=== PATIENT | male | born 1955 | race Caucasian/White ===

== ENCOUNTER 2017-06-22 15:53 | Inpatient (IN) | payer OTHER ==
[~2017-06-22] VITALS: Ht 175.3 cm; Wt 89.4 kg
[~2017-06-22 15:53] MED LIST: GLEEVEC400 M1; PERCOCET 325 MG1 TA2 PO
[2017-06-22 17:59] LABS: ABSOLUTE BASOPHIL COUNT 0 /CUMM (0.0-0.2); ABSOLUTE EOSINOPHIL COUNT 0.1 /CUMM (0.0-0.7); ABSOLUTE GRANULOCYTE CT 11.5 /CUMM (1.4-6.5); ABSOLUTE MONOCYTE COUNT 0.9 /CUMM (0.10-0.60); BASOPHIL % 0.2 % (0.0-2.0); EOSINOPHIL % 0.9 % (0-5); GRANULOCYTE % 84.9 % (42.2-75.2); HEMATOCRIT 41.6 % (42-52); MEAN CORPUSCULAR HGB 32.5 PG (27.0-31.0); MEAN CORPUSCULAR HGB CONC 33.5 G/DL (33.0-37.0); MEAN CORPUSCULAR VOLUME 96.9 FL (80.0-94.0); MEAN PLATELET VOLUME 8.1 FL (7.4-10.4); PLATELET COUNT 229 /CUMM (130-400); RBC DISTRIBUTION WIDTH 13.8 % (11.5-14.5); RED BLOOD CELL CT 4.29 /CUMM (4.70-6.10); WHITE BLOOD CELL COUNT 13.6 /CUMM (4.8-10.8)
--- NOTE | 2017-06-22 18:06 | ED GENERAL ADULT ---
History of Present Illness General Chief Complaint: General Adult Stated Complaint: SIB FOR FEVER OF 101.4 Source: patient Exam Limitations: no limitations Vital Signs & Intake/Output Vital Signs & Intake/Output Vital Signs Date Time Temp Pulse Resp B/P B/P Pulse O2 O2 Flow FiO2 Mean Ox Delivery Rate 06/224 101.2 90 18 154/90 97 Room Air 06/22 1852 97 Room Air 06/22 1558 100.9 90 20 180/90 98 Room Air Allergies Coded Allergies: MDX - PCN (penicillin) (PCN (PENICILLIN)) (Severe, HIVES 08/05/13) Reconcile Medications Imatinib Mesylate (Gleevec) 400 MG TABLET 1 TAB PO DAILY GIST (Reported) OXYCODONE HCL/ACETAMINOPHEN (Percocet 5-325 MG Tablet) 325 MG/5 MG TAB 1 TAB PO Q4-6 PRN PRN PAIN Triage Note: PT TO ED FOR FEVER OF 101.4. PT IS S/P BIOPSY OF LEFT SHOULDER ON 06/18. PT DEVELOPED FEVERS, CHILLS, TENDERNESS TO AREA ON TUESDAY 06/20. WAS STARTED ON ABX TODAY, TOOK FIRST DOSE 45 MINS AGO. TEMP 100.9 IN TRIAGE. C/O PAIN/TENDERNESS TO THE AREA ON LEFT SHOULDER. PT REQUESTING NO NARCOTICS. Triage Nurses Notes Reviewed? yes HPI: Patient presents for evaluation of a fever and a possible surgical wound infection. Patient states that he went to see his accounts receivable accountant with a concerning skin lesion. 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 Patient then went to Dr. Johnson who excised at the lesion on of last week. 48 hours after patient began experiencing fever and chills and worsening pain in the area of the surgical site. Patient saw Dr. Johnson earlier today and was prescribed an antibiotic after a culture was taken. He subsequently had a fever of 101.4 rectally each prompted his physicians recommended emergency Department evaluation. (Irais SIDDIQUI,Gregory Jauregui) Past History Travel History Traveled to [place] past 21 day No Medical History Any Pertinent Medical History? see below for history Cardiovascular: hyperlipidemia Cancer(s): colon/rectal cancer History of MRSA: No History of VRE: No History of CDIFF: No Surgical History Surgical History: see HPI Psychosocial History Who do you live with Spouse Services at Home None What is your primary language Azeri Tobacco Use: Quit >30 days ago Family History Hx Contributory? No (Irais SIDDIQUI,Gregory Jauregui) Review of Systems Review of Systems Constitutional: Reports: see HPI. EENTM: Reports: no symptoms. Respiratory: Reports: no symptoms. Cardiovascular: Reports: no symptoms. GI: Reports: no symptoms. Genitourinary: Reports: no symptoms. Musculoskeletal: Reports: no symptoms. Skin: Reports: see HPI. Neurological/Psychological: Reports: no symptoms. Hematologic/Endocrine: Reports: no symptoms. Immunologic/Allergic: Reports: no symptoms. All Other Systems: Reviewed and Negative (Irais SIDDIQUI,Gregory Jauregui) Physical Exam Physical Exam General Appearance: see below Comments: Gen.: Well-nourished, well-developed, no acute respiratory distress. Head: Normocephalic, atraumatic. Eyes: Normal inspection bilaterally Ears: Normal inspection bilaterally Nose: Normal inspection Throat/mouth : Moist mucosa Neck: Supple, full range of motion, no goiter Heart: Regular rate and rhythm Lungs: Quiet respirations Back: Normal range of motion Extremities: Left shoulder: Sutured surgical wound with erythema warmth and soft tissue swelling Neurologic: Cranial nerves grossly intact, speech is clear Skin: warm and dry Psychiatric: Calm, cooperative, no apparent delusions or hallucinations Core Measures ACS in differential dx? No CVA/TIA Diagnosis: No Sepsis Present: No Sepsis Focused Exam Completed? No (Irais SIDDIQUI,Gregory Jauregui) Progress Differential Diagnoses I considered the following diagnoses in my evaluation of the patient: Surgical wound infection, cellulitis, abscess Plan of Care: Orders Procedure Date/time Status Heart Healthy Diet 06/23 B Active ED Holding Orders 06/22 2052 Active Vital Signs 06/22 2052 Active Code Status 06/22 2052 Active BLOOD CULTURE 06/23 1731 Active LACTIC ACID 06/23 1731 Complete WESTERGREN SED RATE 06/23 1731 Complete C-REACTIVE PROTEIN 06/23 1731 Complete COMPREHENSIVE METABOLIC PANEL 06/23 1731 Complete CBC WITHOUT DIFFERENTIAL 06/23 1731 Complete Laboratory Tests 06/22/172031: Lactic Acid Cancelled 06/22/171736: Anion Gap 11, Estimated GFR > 60, BUN/Creatinine Ratio 22.5, Glucose 103 H, Lactic Acid 0.8, Calcium 9.4, Total Bilirubin 1.0, AST 28, ALT 43, Alkaline Phosphatase 76, C-Reactive Prot, Quant 7.2 H, Total Protein 7.5, Albumin 4.8, Globulin 2.7, Albumin/Globulin Ratio 1.8, CBC w Diff MAN DIFF ORDERED, RBC 4.29 L, MCV 96.9 H, MCH 32.5 H, MCHC 33.5, RDW 13.8, MPV 8.1, Gran % 84.9 H, Lymphocytes % 7.3 L, Monocytes % 6.7, Eosinophils % 0.9, Basophils % 0.2, Absolute Granulocytes 11.5 H, Segmented Neutrophils 79 H, Band Neutrophils 4, Absolute Lymphocytes 1.0 L, Lymphocytes 11 L, Monocytes 4, Absolute Monocytes 0.9 H, Eosinophils 1, Absolute Eosinophils 0.1, Basophils 1, Absolute Basophils 0, Platelet Estimate ADEQUATE, Macrocytic Cells 1+, ESR Westergren 40 H Microbiology 06/23 1919 BLOOD: Blood Culture - RECD 06/23 1907 BLOOD: Blood Culture - RECD Initial ED EKG: none Comments: 06/22/2017 7:16:29 PM 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 (Irais SIDDIQUI,Gregory Jauregui) Differential Diagnoses I considered the following diagnoses in my evaluation of the patient: Diagnostic Imaging: Viewed by Me: Ultrasound. Discussed w/RAD: Ultrasound. Radiology Impression: PATIENT: SEMAJ ZURITA PRESENT AGE: 61 PATIENT ACCOUNT NO: [id number] : 53 LOCATION: [facility] ORDERING PHYSICIAN: Kan REID SERVICE DATE: 06/22/17 EXAM TYPE: US - US -SUPERFICIAL IMAGING EXTREMI EXAMINATION: US SUPERFICIAL IMAGING, EXTREMITY CLINICAL INFORMATION: History of squamous cell carcinoma status post biopsy left anterior shoulder. Fever, chills, and pain. COMPARISON: No relevant prior imaging. TECHNIQUE: Multiple grayscale and duplex imaging of the subcutaneous tissues of the left shoulder were obtained by a skilled senior talent management consultant utilizing a linear high-frequency transducer array. FINDINGS: There is diffuse swelling of the subcutaneous soft tissues. Grossly no evidence of a discrete drainable fluid collection. IMPRESSION: Diffuse subcutaneous soft tissue swelling consistent with cellulitis. Grossly no evidence of a discrete drainable fluid collection. DICTATED BY: Loc SIDDIQUI,Kee Clark DATE/TIME DICTATED:06/22/172047 STRINGER UP SOLDERING MACHINE:CORETTA DATE/TIME TRANSCRIBED:06/22/172047 CONFIDENTIAL, DO NOT COPY WITHOUT APPROPRIATE AUTHORIZATION. <Electronically signed in Other Vendor System> SIGNED BY: Kee Monterroso MD 06/22/172053 Comments: D/W DR. [phone], HE RECOMMENDS MEDICAL ADMISSION FOR IV ABX. ([place] SIDDIQUI,Orion Treviño) Departure Departure Disposition: STILL A PATIENT Condition: Stable Clinical Impression Primary Impression: Surgical wound infection Qualifiers: Encounter type: initial encounter Qualified Code: T81.4XXA - Infection following a procedure, initial encounter Referrals: Dedrick Fox MD (PCP/Family) Departure Forms: Customer Survey General Discharge Information (Irais SIDDIQUI,Gregory Jauregui) Admission Note Spoke With: Mikie Loo MD Documentation of Exam: Documentation of any treatments & extenuating circumstances including Concerns Regarding Discharge (functional status, medication knowledge or non-compliance, living conditions, etc.) that warrant an admission rather than observation: [IV ABX, ID CONSULT, FOLLOW UP WOUND CULTURE, IV FLUIDS] (Orion Elaine MD) Critical Care Note Critical Care Note Critical Care Time: non-applicable (Orion Elaine MD)
--- NOTE | 2017-06-22 20:54 | ULTRASOUND REPORT ---
EXAMINATION: US SUPERFICIAL IMAGING, EXTREMITY CLINICAL INFORMATION: History of squamous cell carcinoma status post biopsy left anterior shoulder. Fever, chills, and pain. COMPARISON: No relevant prior imaging. TECHNIQUE: Multiple grayscale and duplex imaging of the subcutaneous tissues of the left shoulder were obtained by a skilled nuclear chemistry technician utilizing a linear high-frequency transducer array. FINDINGS: There is diffuse swelling of the subcutaneous soft tissues. Grossly no evidence of a discrete drainable fluid collection. IMPRESSION: Diffuse subcutaneous soft tissue swelling consistent with cellulitis. Grossly no evidence of a discrete drainable fluid collection.
--- NOTE | 2017-06-22 21:23 | History & Physical ---
Rabia Denise 06/22/172112: General Information and HPI MD Statement: I have seen and personally examined SEMAJ ZURITA and documented this H&P. The patient is a 61 year old M who presented with a patient stated chief complaint of [Cellulitis]. Source of Information: patient, old records Exam Limitations: no limitations History of Present Illness: Mr. 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 Patient was seen outpatient dermatology once a year schedule, and was found to have a lesion of the left shoulder, and underwent cryo therapy, and later hammerer tab decided to resect the lesion. Patient was currently status post a left shoulder skin biopsy on 06/18, which later the biopsy showed to be a squamous cell carcinoma. After biopsy, patient developed fever chills, and tenderness of the area on Tuesday 06/20, that he took some Advil and relieved. His wound was cultured by outpatient hammerer tab send a culture sample was sent to [facility]. Patient was started on cefadroxil and tolerated well, despite he had allergies before to penicillin. He took the first dose of antibiotics prior to admission, and he received dose of vancomycin plus ceftazidime in the ER, without any complications. He was taking Gleevec on daily basis after dinner for his GIST, and he claimed that he was taking Lipitor along with Gleevec before which caused some myopathy, and later he was switched to pravastatin 40 mg daily without complications. During our clinical interaction, patient endorsed some mild tenderness of the left shoulder suture site, and some pulling of his neck muscles on the left side. However patient denied cough/SOB/Chest Pain/Palpitation/exercise intolerance/Abdominal pain/bowel movement/urinary abnormality, or other skin/ musculoskeletal/neurological disorders/mood change/insomnia/dietary/appetite change. -Smoking: Never -Alcohol: Allergic to alcohol -Rec Drugs: Denied Pen Allergy: extreme itchy and rash from last use. Allergies/Medications Home Med list Aspirin (Ecotrin*) 81 MG TABLET. 1 TAB PO DAILY HEART (Reported) Imatinib Mesylate (Gleevec) 400 MG TABLET 1 TAB PO DAILY GIST (Reported) OXYCODONE HCL/ACETAMINOPHEN (Percocet 5-325 MG Tablet) 325 MG/5 MG TAB 1 TAB PO Q4-6 PRN PRN PAIN Pravastatin Sodium 40 MG TABLET 1 TAB PO DAILY LIPID (Reported) Past History Travel History Traveled to [place] past 21 day No Medical History Cardiovascular: hyperlipidemia Cancer(s): s/p several resection of relapsing GIST, Squamous cell carcinoma of Left shoulder skin, s/p resection History of MRSA: No History of VRE: No History of CDIFF: No Surgical History Surgical History: see HPI Past Family/Social History Psychosocial History Services at Home: None Review of Systems Review of Systems Constitutional: Reports: see HPI. Exam & Diagnostic Data Last 24 Hrs of Vital Signs/I&O Vital Signs Date Time Temp Pulse Resp B/P B/P Pulse O2 O2 Flow FiO2 Mean Ox Delivery Rate 06/22 1904 101.2 90 18 154/90 97 Room Air 06/22 1852 97 Room Air 06/22 1558 100.9 90 20 180/90 98 Room Air Intake & Output 06/22 1600 06/22 0800 06/22 0000 Intake Total Output Total Balance Patient 87.09 kg Weight Physical Exam General Appearance Alert, Oriented X3, Cooperative, No Acute Distress Skin No Rashes, Left shoulder s/p skin biopsy with sutures, erythematous with mild tenderness and numbness on pressing. Some pulling/referal pain at L neck Skin Temp/Moisture Exam: Warm/Dry Sepsis Skin Exam (color): Normal for Ethnicity HEENT Atraumatic, PERRLA Neck Supple, No JVD Cardiovascular Regular Rate Lungs Clear to Auscultation, Normal Air Movement Abdomen Normal Bowel Sounds, Soft, No Tenderness Neurological Normal Speech, Strength at 5/5 X4 Ext Extremities No Edema, Normal Pulses, No Tenderness/Swelling Last 24 Hrs of Labs/Adalberto: Laboratory Tests 06/22/172031: Lactic Acid Cancelled 06/22/171736: Anion Gap 11, Estimated GFR > 60, BUN/Creatinine Ratio 22.5, Glucose 103 H, Lactic Acid 0.8, Calcium 9.4, Total Bilirubin 1.0, AST 28, ALT 43, Alkaline Phosphatase 76, C-Reactive Prot, Quant 7.2 H, Total Protein 7.5, Albumin 4.8, Globulin 2.7, Albumin/Globulin Ratio 1.8, CBC w Diff MAN DIFF ORDERED, RBC 4.29 L, MCV 96.9 H, MCH 32.5 H, MCHC 33.5, RDW 13.8, MPV 8.1, Gran % 84.9 H, Lymphocytes % 7.3 L, Monocytes % 6.7, Eosinophils % 0.9, Basophils % 0.2, Absolute Granulocytes 11.5 H, Segmented Neutrophils 79 H, Band Neutrophils 4, Absolute Lymphocytes 1.0 L, Lymphocytes 11 L, Monocytes 4, Absolute Monocytes 0.9 H, Eosinophils 1, Absolute Eosinophils 0.1, Basophils 1, Absolute Basophils 0, Platelet Estimate ADEQUATE, Macrocytic Cells 1+, ESR Westergren 40 H Microbiology 06/23 1919 BLOOD: Blood Culture - RECD 06/23 1907 BLOOD: Blood Culture - RECD Assessment/Plan Assessment: Problem list & Assessment: Patient's imaging evidence, along with physical examination revealed a cellulitis site on left shoulder, with sutures in place, minimal drainage, however some mild tenderness on palpation, and possible pus development based on pulling of the left neck muscle. Patient was taken Gleevec for his history of GIST, this might have put the patient into immunocompromise state. Patient has already received vancomycin which will last 24 hours in system, and also cefadroxil without noticeable antalgic complication. Patient had no previous MRSA or unremarkable microbiology cultures in the system, however he stated that back in [place] when he got the surgery for his GIST some bacteria was cultured. His hyperlipidemia is presently being maintained was pravastatin 40 mg daily without complaints of myopathy. #Sepsis 2/2 cellulitis s/p biopsy #Cellulitis of the left shoulder status post skin biopsy #PMH of HLD, GIST S/P resection, Hospital Course: - Admit to general medicine floor -Start IV cefazolin for cellulitis, will hold on vancomycin and monitor patient' for the next 24 hours on the wound. Should will not get worse, will start vancomycin and consult ID. -consider surgery consult for wound, however hammerer tab recommended no removal of suture until being seen in outpatient. patient's brought fall). -Pending blood cultures, wound cultures -Pain control with IV acetaminophen, Toradol, and Ultram. DVT prophylaxis Lovenox + ALPS Regular Diet Full Code As Ranked By This Provider Problem List: 1. Surgical wound infection Qualifiers Encounter type: initial encounter Qualified Code: T81.4XXA - Infection following a procedure, initial encounter Core Measures/Misc (11/09) Acute Coronary Syndrome ACS Diagnosis: No Congestive Heart Failure Congestive Heart Failure Diagnosis No Cerebrovascular Accident CVA/TIA Diagnosis: No VTE (View Protocol) VTE Risk Factors Age>40 No Mechanical VTE Prophylaxis d/t N/A MechProphylax Ordered No VTE Pharm Prophylaxis d/t NA PharmProphylax ordered Sepsis (View protocol) Sepsis Present: No Jenny Benavideztedwin 06/22/17 2211: General Information and HPI Allergies/Medications Allergies: Coded Allergies: Penicillins (Severe, HIVES 06/22/17) alcohol (UNKNOWN 06/22/17) atorvastatin (From LIPITOR) (UNKNOWN 06/22/17) Myopathy, Only when taking with Gleevec Resident Review Statement Resident Statement: examined this patient, discussed with international controller Other Findings: Patient is a 61-year-old male with past medical history of GIST tumor s/p resection( on Gleevac), hypertension, hyperlipidemia who presented to the hospital for evaluation of a fever, chills, and a possible surgical site infection. Patient reports that about 3 months ago he noted a growth on his left shoulder and consulted his hammerer tab Dr. Molina who took a frozen section of the growth. When he saw her after a few months, the growth had increased in size and therefore she took a biopsy. Biopsy revealed squamous cell carcinoma. He was referred to Dr. Johnson for excision which was done on 06/19/2017. Post- excision patient started feeling chills and feverish at home with worsening pain and erythema at the surgical site. He he saw Dr. Johnson today for his symptoms and was prescribed cefadroxil. Wound cultures were drawn. Since patient continued to have fever and chills he decided to come to the ER. Vitals in the ED was significant for temp of 100.9, pulse 90, respiration 20, blood pressure 180/90, saturating 98% on room air Labs significant for a white count of 13.6 with 4 bands, ESR 40, normal chemistries. Imaging of the shoulder showed diffuse subcutaneous soft tissue swelling consistent with cellulitis. There was no evidence of fluid accumulation. Patient was given IV vancomycin and IV ceftazidime in the ED and Toradol IV for pain. Physical exam General: Awake, alert, oriented, mild distress HEENT: PERRLA, EOMI Chest: Normal breath sounds CVS: S1 and S2 heard, no murmurs Abdomen: Bowel sounds positive Extremities: Left shoulder erythema, induration, warmth and edema surrounding the surgical site. About 5 cm indurated surgical scar seen. Assessment Sepsis secondary to cellulitis of the left shoulder Surgical site cellulitis Hypertension Hyperlipidemia History of GIST tumor status post resection on Gleevac Plan * Admit to [facility] * Vitals per protocol * IV hydration with normal saline at 75 cc 1 bag (caution HTN) * Blood and wound culture.Wound cultures were sent from Dr. Johnson office to [facility] please follow results. * Patient is allergic to penicillin. Received IV vancomycin and IV ceftazidime in the ED. Will start IV cefazolin now and tailor antibiotics according to the cultures. Can add vancomycin if purulent discharge seen. * Surgical's consult in a.m. * Consider ID consult if no improvement in the wound. * Dr. Johnson has requested sutures not be removed without his knowledge * Consider amlodipine if blood pressure continues to be high. 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 Johnson on June 18. Two days later he developed fever (101), chills and pain/ erythema around the surgical site. He took Advil to help with pain. This morning he was evaluated at Dr. Johnson's office, wound cultures done and PO cefadroxil was prescribed. Patient took first dose of antibiotics. However he continued to spike a fever of 101.4, hence he came to the ER. Vitals: Tmax 101.2, HR 60-70's, BP 140/82, sats 97% RA. Left shoulder supero- posterior aspect about 4-5 cm linear incision with sutures noted with diffuse area of erythema, swelling and induration surrounding it. There is minimal purulent discharge, no obvious fluctuance. Labs: WBC 13.6, bands 4, macrocytic anemia, ESR 40, glucose 103, CRP elevated at 7.2. Left shoulder ultrasound diffuse subcutaneous soft tissue swelling consistent with cellulitis. No evidence of discrete drainable fluid collection. Assessment and plan: 1. Sepsis 2/2 surgical site wound cellulitis 2. Cellulitis of left shoulder region s/p recent excision of squamous cell carcinoma 3. History of GIST on Gleevec 4. Borderline blood pressure - Admit to General medicine - Blood cultures - Wound cultures were sent from Dr. Johnson office please follow results on [facility] - Patient received IV ceftaz and vanco in the ER. - We will continue with IV cefazolin (as patient is allergic to penicillin). - If wound cultures suggest MRSA will change to vancomycin. - Gentle IV hydration - Surgery consult - Speeder Machine Operator Dr. Johnson has requested sutures not be removed without his knowledge - Pain management with IV toradol, tramadol and tylenol. Patient does not want narcotics. - Continue Gleevec DVT ppx Lovenox. Full code. knowledge - Pain management with IV toradol, tramadol and tylenol. Patient does not want narcotics. - Continue Gleevec DVT ppx Lovenox. Full code.
[2017-06-22] MEDS ORDERED: PRAVASTATIN SOD40 M2 PO (21:44)
[2017-06-22] MEDS ORDERED: ASPIRIN EC81 M1 PO (21:44)
--- NOTE | 2017-06-22 22:11 | Admission Certification ---
Admission Certification Certification Statement - As attending physician, I certify that at the time of - admission, based on clinical presentation, severity of - symptoms, need for further diagnostic testing and - therapeutic interventions, and risk of adverse outcomes - without in-hospital treatment, in my clinical assessment, - this patient requires an acute hospital stay for a minimum - of two nights or longer. I have also considered psychsocial - factors such as support system, advanced age, financial - issues, cognitive issues, and failed out-patient treatments, - past re-admission history, safety of patient, and lack of - compliance as applicable. Specific rationale supporting this admission is: Sepsis due to left shoulder cellulitis status post recent excision of squamous cell carcinoma.
[2017-06-22 22:55] VITALS: BP 140/82
[2017-06-23 06:20] VITALS: BP 130/66
--- NOTE | 2017-06-23 07:26 | PN- Housestaff ---
Jolynn SIDDIQUI,Jose Francisco 06/23/17 0725: Subjective Follow-up For: LEFT SHOULDER CELLULITIS Complaints: pain Subjective: I followed up and examined the patient today. He is resting comfortably in bed, although he complains of left shoulder pain over the wound. He can move his arm and shoulder freely without any restrictions. Fever reported overnight 101.2 max. Review of Systems Constitutional: Reports: no symptoms. Objective Last 24 Hrs of Vital Signs/I&O Vital Signs Date Time Temp Pulse Resp B/P B/P Pulse O2 O2 Flow FiO2 Mean Ox Delivery Rate 06/23 1600 99.5 06/23 1456 100.0 06/23 1401 100.0 06/23 1356 100.0 92 20 150/90 100 Room Air 06/23 0620 99.0 61 20 130/66 96 Room Air 06/23 0000 98.6 06/22 2255 100.1 84 24 140/82 97 Room Air 06/22 2245 100.1 06/22 1904 101.2 90 18 154/90 97 Room Air 06/22 1852 97 Room Air Intake & Output 06/23 1600 06/23 0800 06/23 0000 Intake Total 1000 240 Output Total Balance 1000 240 Intake, IV 600 Intake, Oral 400 240 Patient 89.386 kg Weight Weight Bed scale Measurement Method Physical Exam General Appearance: Alert, Oriented X3, Cooperative, No Acute Distress, overweight Other Physical Findings: Skin Left shoulder s/p skin biopsy with sutures, erythematous base with indurated area, and PUS PRESENT ON mild pressure Skin Temp/Moisture Exam: Warm/Dry Sepsis Skin Exam (color): Normal for Ethnicity HEENT Atraumatic, PERRLA Neck Supple, No JVD Cardiovascular Regular Rate Lungs Clear to Auscultation, Normal Air Movement Abdomen Normal Bowel Sounds, Soft, No Tenderness Neurological Normal Speech, Strength at 5/5 X4 Ext Extremities No Edema, Normal Pulses, No Tenderness/Swelling. Left shoulder as above. Current Medications: Current Medications Sig/Major Start time Last Medication Dose Route Stop Time Status Admin Acetaminophen 650 MG Q4P PRN 06/23 1400 AC 06/23 PO 1401 Acetaminophen 1,000 MG Q6P PRN 06/22 2200 AC 06/22 N/A 1 UNIT IV 2245 Acetaminophen 325 MG Q6 PRN 06/225 DC PO Acetaminophen 1,000 MG ONCE ONE 06/22 194 DC N/A 1 UNIT IV 04/30 1959 Aspirin Buffered 81 MG DAILY 06/23 0900 AC 06/23 PO 0803 Cefazolin Sodium 2 GM IQ8 06/23 0000 AC 06/23 N/A 1 UNIT IV 1634 Ceftazidime 0 .STK-MED ONE 06/22 1934 DC .ROUTE Enoxaparin Sodium 40 MG DAILY 06/23 0900 AC 06/23 SC 0803 Ketorolac 30 MG .STK-MED ONE 06/23 0428 DC Tromethamine IM 06/23 0429 Ketorolac 30 MG Q8P PRN 06/22 2199 AC 06/23 Tromethamine IV 0431 Ketorolac 30 MG ONCE ONE 06/22 184 DC 06/22 Tromethamine IV 06/22 1845 183 Ketorolac 0 .STK-MED ONE 06/22 1840 DC Tromethamine .ROUTE Non-Formulary 0 SEE ADMIN CRITERIA 06/22 2144 UNVr Medication ANY Oxycodone/ 1 TAB Q4-6 PRN PRN 06/22 2144 DC Acetaminophen PO Patient Medication 1 ED ONE ONE 06/23 1815 AC Teaching ED 06/23 1816 Pravastatin Sodium 40 MG QPM 06/23 2100 AC PO Sodium Chloride 1,000 ML Q13H 06/22 2345 DC 06/23 IV 06/23 1244 0017 Sodium Chloride 1,000 ML BOLUS ONE 06/22 174 DC 06/22 IV 06/22 184 174 Tramadol HCl 50 MG Q6 PRN 06/220 AC 06/23 PO 1339 Vancomycin HCl 0 .STK-MED ONE 06/22 1934 DC .ROUTE Vancomycin HCl 1,000 MG ONCE ONE 06/22 174 DC 06/22 Sodium Chloride 250 ML IV 06/22 184 203 Last 24 Hrs of Lab/Adalberto Results Last 24 Hrs of Labs/Mics: Laboratory Tests 06/23/17 0624: Anion Gap 9, Estimated GFR > 60, BUN/Creatinine Ratio 27.1 H, CBC w Diff NO MAN DIFF REQ, RBC 3.63 L, MCV 96.1 H, MCH 33.2 H, MCHC 34.5, RDW 14.0, MPV 8.6, Gran % 80.0 H, Lymphocytes % 9.8 L, Monocytes % 8.2, Eosinophils % 1.6, Basophils % 0.4, Absolute Granulocytes 9.0 H, Absolute Lymphocytes 1.1 L, Absolute Monocytes 0.9 H, Absolute Eosinophils 0.2, Absolute Basophils 0 06/22/172031: Lactic Acid Cancelled Microbiology 06/22 2329 EXTREMITIE: Culture & Sensitivity - CAN Cancelled: Cancelled via OE: Per Decision 06/22 2329 EXTREMITIE: Gram Stain - CAN Cancelled: Cancelled via OE: Per Decision 06/23 1919 BLOOD: Blood Culture - RES 06/23 1907 BLOOD: Blood Culture - RES Assessment/Plan Assessment: Assessment: -Sepsis secondary to cellulitis of the left shoulder -Surgical site infection -h/o Hypertension -h/o Hyperlipidemia -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 Patient not worsening, so assuming MSSA, but will change to Vanco if need be. * Wound cultures were sent from Dr. Johnson office to [facility] * Patient is allergic to penicillin. Received IV vancomycin and IV ceftazidime in the ED. Will start IV cefazolin now and tailor antibiotics according to the cultures. Can add vancomycin if purulent discharge seen. * ID consult requested to guide the abx therapy. * Dr. Johnson has requested sutures not be removed without his knowledge * Consider amlodipine if blood pressure continues to be high. * Pain control with IV Toradol, PO tramadol, and IV Tylenol * Continue Gleevac for GIST tumor (pt will use his own med if not available at the pharmacy) * DVT prophylaxis subcutaneous Lovenox * Full code Problem List: 1. Surgical wound infection Pain Ratin Pain Location: left shoulder Pain Goal: Pain 4 or less Pain Plan: prn Tomorrow's Labs & Rationales: Florin More MD 06/23/17 4647: Attending MD Review Statement Attending Statement Attending Statement: examined this patient, discuss w/resident/PA/FOREIGN LEGAL CONSULTANT, agreed w/resident/PA/FOREIGN LEGAL CONSULTANT, discussed with family, reviewed EMR data (avail), discussed with nursing, discussed with case mgmt, reviewed images, amended to note Attending Assessment/Plan: The patient was seen and discussed with resident. Cellulitis appears to be slightly receded- was able to express a small amount of pus from wound. No abscess as per US done at time of admission. Afebrile today on Ancef (did receive 1 dose of Vanco in ED). OP cultures from 06/22 growing staph (await ID). Spoke to Dr. Vallejo from ID and he will see patient tomorrow. Consider surgical involvement and drainage of wound. If spikes fever will restart Vanco.
[2017-06-23 09:09] LABS: ABSOLUTE BASOPHIL COUNT 0 /CUMM (0.0-0.2); ABSOLUTE EOSINOPHIL COUNT 0.2 /CUMM (0.0-0.7); ABSOLUTE LYMPH COUNT 1.1 /CUMM (1.2-3.4); ABSOLUTE MONOCYTE COUNT 0.9 /CUMM (0.10-0.60); BASOPHIL % 0.4 % (0.0-2.0); EOSINOPHIL % 1.6 % (0-5); MEAN CORPUSCULAR HGB 33.2 PG (27.0-31.0); MEAN CORPUSCULAR HGB CONC 34.5 G/DL (33.0-37.0); MEAN CORPUSCULAR VOLUME 96.1 FL (80.0-94.0); MEAN PLATELET VOLUME 8.6 FL (7.4-10.4); PLATELET COUNT 203 /CUMM (130-400); RED BLOOD CELL CT 3.63 /CUMM (4.70-6.10); WHITE BLOOD CELL COUNT 11.2 /CUMM (4.8-10.8)
[2017-06-23 09:42] LABS: HEMATOCRIT 34.9 % (42-52)
[2017-06-23 13:56] VITALS: BP 150/90
[2017-06-23 22:25] VITALS: BP 120/60
[2017-06-24 06:20] VITALS: BP 132/70
--- NOTE | 2017-06-24 07:41 | PN- Housestaff ---
Jolynn SIDDIQUI,Jose Francisco 06/24/17 0741: Subjective Follow-up For: LEFT SHOULDER CELLULITIS Complaints: painful shoulder Subjective: I followed up and examined the patient today. He is resting comfortably in bed, although he complains of left shoulder pain over the wound. He can move his arm and shoulder freely without any restrictions. The redness over the shoulder has spread to front of his shoulder up to his chest as well. Tmax: 101.6 F, received one dose of Vanco last night. Review of Systems Constitutional: Reports: see HPI. Objective Last 24 Hrs of Vital Signs/I&O Vital Signs Date Time Temp Pulse Resp B/P B/P Pulse O2 O2 Flow FiO2 Mean Ox Delivery Rate 06/24 1409 99.2 68 20 140/70 98 06/24 0936 98.4 06/24 0620 99.9 77 18 132/70 97 Room Air 06/23 2225 99.0 73 20 120/60 98 06/23 2044 99.9 06/23 1902 101.6 06/23 1600 99.5 Intake & Output 06/24 1600 06/24 0800 06/24 0000 Intake Total 600 780 630 Output Total Balance 600 780 630 Intake, IV 300 150 Intake, Oral 600 480 480 Physical Exam General Appearance: Alert, Oriented X3, Cooperative, No Acute Distress, overweight Other Physical Findings: Skin Left shoulder s/p skin biopsy with sutures, erythematous base with indurated area which has spread more today towards anterior chest wall without any fluctuance, and still PUS PRESENT ON mild pressure Skin Temp/Moisture Exam: Warm/Dry HEENT Atraumatic, PERRLA Neck Supple, No JVD Cardiovascular Regular Rate Lungs Clear to Auscultation, Normal Air Movement Abdomen Normal Bowel Sounds, Soft, No Tenderness Neurological grossly intact Extremities No Edema, Normal Pulses, No Tenderness/Swelling. Left shoulder as above. Current Medications: Current Medications Sig/Major Start time Last Medication Dose Route Stop Time Status Admin Acetaminophen 1,000 MG .STK-MED ONE 06/23 1900 DC IV 06/23 190 Acetaminophen 650 MG Q4P PRN 06/23 1400 AC 06/23 PO 1401 Acetaminophen 1,000 MG Q6P PRN 06/22 2200 AC 06/24 N/A 1 UNIT IV 1519 Aspirin Buffered 81 MG DAILY 06/23 0900 AC 06/24 PO 0824 Cefazolin Sodium 2 GM IQ8 06/24 1600 AC N/A 1 UNIT IV Cefazolin Sodium 2 GM IQ8 06/23 0000 AC 06/24 N/A 1 UNIT IV 06/24 1559 0824 Enoxaparin Sodium 40 MG DAILY 06/23 0900 06/24 SC 0824 Ketorolac 30 MG .STK-MED ONE 06/23 2353 DC Tromethamine IM 06/23 2354 Ketorolac 30 MG .STK-MED ONE 06/23 2353 DC Tromethamine IM 06/23 2354 Ketorolac 30 MG Q8P PRN 06/22 2200 06/24 Tromethamine IV 0824 Patient Medication 1 ED ONE ONE 06/24 1115 UT Teaching ED 06/24 1116 Patient Medication 1 ED ONE ONE 06/23 1815 DC 06/23 Teaching ED 06/23 1816 1903 Pravastatin Sodium 40 MG QPM 06/23 2100 AC 06/23 PO 2044 Tramadol HCl 50 MG Q6 PRN 06/22 2200 06/23 PO 1339 Vancomycin HCl 1,000 MG ONCE ONE 06/24 0230 UT 06/24 Sodium Chloride 250 ML IV 06/24 0329 0240 Last 24 Hrs of Lab/Adalberto Results Last 24 Hrs of Labs/Mics: Laboratory Tests 06/24/17 0621: CBC w Diff NO MAN DIFF REQ, RBC 3.54 L, MCV 96.2 H, MCH 33.3 H, MCHC 34.6, RDW 13.5, MPV 8.7, Gran % 78.9 H, Lymphocytes % 11.1 L, Monocytes % 7.5, Eosinophils % 2.0, Basophils % 0.5, Absolute Granulocytes 7.3 H, Absolute Lymphocytes 1.0 L, Absolute Monocytes 0.7 H, Absolute Eosinophils 0.2, Absolute Basophils 0 Assessment/Plan Assessment: Assessment: -Sepsis secondary to cellulitis of the left shoulder -Surgical site infection -h/o Hypertension -h/o Hyperlipidemia -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 Patient had fever last night and received another dose of Vancomycin. * If patient does not improve clinically in the next 24 hours, will plan for CT of shoulder to see if the abscess is drainable or if there is any extension of the infection towards the joint. Will also get surgery consult then. * Wound cultures were sent from Dr. Johnson office to [facility] * Patient is allergic to penicillin. Received IV vancomycin and IV ceftazidime in the ED. Will continue IV cefazolin now and change antibiotics according to the cultures. * ID consult requested to guide the abx therapy. * Dr. Johnson has requested sutures not be removed without his knowledge * Consider amlodipine if blood pressure continues to be high. * Pain control with IV Toradol, PO tramadol, and IV Tylenol * Continue Gleevac for GIST tumor (pt will use his own med if not available at the pharmacy) * DVT prophylaxis subcutaneous Lovenox * Full code Problem List: 1. Surgical wound infection Pain Ratin Pain Location: shoulder Pain Goal: Pain 4 or less Pain Plan: as above Tomorrow's Labs & Rationales: CBC (sepsis), BEP (had received Vanco) Florin Marti MD 06/24/17 1415: Attending MD Review Statement Attending Statement Attending MD Statement: examined this patient, discuss w/resident/PA/MEDICAL SERVICES ASSISTANT, agreed w/resident/PA/MEDICAL SERVICES ASSISTANT, reviewed EMR data (avail), discussed with nursing, discussed with case mgmt, amended to note Attending Assessment/Plan: The patient was seen and discussed with house staff. Appreciate ID input. There is new erythema extending to anterior and posterior shoulder. Still some purulent drainage. Did spike fever to 101 last pm. As per ID will continue IV Ancef (staph is not MRSA per ID). May need to re-image with CT shoulder and chest area if worsening or persistent fever. ADDENDUM- the patient noted late in day spread of erythema down left anterior chest and left neck. He prefers imaging to be done and will have on-call team order CT's left shoulder/upper chest.
[2017-06-24 08:40] LABS: ABSOLUTE BASOPHIL COUNT 0 /CUMM (0.0-0.2); ABSOLUTE EOSINOPHIL COUNT 0.2 /CUMM (0.0-0.7); ABSOLUTE GRANULOCYTE CT 7.3 /CUMM (1.4-6.5); ABSOLUTE MONOCYTE COUNT 0.7 /CUMM (0.10-0.60); BASOPHIL % 0.5 % (0.0-2.0); GRANULOCYTE % 78.9 % (42.2-75.2); HEMATOCRIT 34.1 % (42-52); MEAN CORPUSCULAR HGB 33.3 PG (27.0-31.0); MEAN CORPUSCULAR HGB CONC 34.6 G/DL (33.0-37.0); MEAN CORPUSCULAR VOLUME 96.2 FL (80.0-94.0); MEAN PLATELET VOLUME 8.7 FL (7.4-10.4); PLATELET COUNT 203 /CUMM (130-400); RBC DISTRIBUTION WIDTH 13.5 % (11.5-14.5); RED BLOOD CELL CT 3.54 /CUMM (4.70-6.10); WHITE BLOOD CELL COUNT 9.2 /CUMM (4.8-10.8)
--- NOTE | 2017-06-24 10:58 | Cons- Infect Disease ---
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 On admission he was febrile to 101.2. Laboratory data revealed a white blood cell count of 14,000, BUN/creatinine 18 and 0.8, with normal liver enzymes. An ultrasound revealed diffuse subcutaneous soft tissue swelling with no evidence of a discrete drainable fluid collection. He was given Vancomycin and Ceftazidime in the emergency room and was then placed on Cefazolin. He was again febrile last evening and was given another dose of Vancomycin. He notes continued pain in the shoulder with spreading of the erythema towards the chest wall. He has also had expressible purulent drainage from the surgical site. Allergies/Medications Allergies: Coded Allergies: Penicillins (Severe, HIVES 06/22/17) alcohol (UNKNOWN 06/22/17) atorvastatin (From LIPITOR) (UNKNOWN 06/22/17) Myopathy, Only when taking with Gleevec Home Med List: Aspirin (Ecotrin*) 81 MG TABLET.DR 1 TAB PO DAILY HEART (Reported) Imatinib Mesylate (Gleevec) 400 MG TABLET 1 TAB PO DAILY GIST (Reported) OXYCODONE HCL/ACETAMINOPHEN (Percocet 5-325 MG Tablet) 325 MG/5 MG TAB 1 TAB PO Q4-6 PRN PRN PAIN Pravastatin Sodium 40 MG TABLET 1 TAB PO DAILY LIPID (Reported) Past History Travel History Traveled to [place] past 21 day No Medical History Blood Transfusion Hx: No Neurological: NONE EENT: NONE Cardiovascular: hyperlipidemia Respiratory: NONE Gastrointestinal: GIST Hepatic: NONE Renal: NONE Musculoskeletal: NONE Psychiatric: NONE Endocrine: NONE Blood Disorders: NONE Cancer(s): 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 Home Services at Home: None Smoking Status: Former Smoker Review of Systems Review of Systems All Other Systems: Reviewed and Negative Exam & Diagnostic Data Last 24 Hrs of Vital Signs/I&O Vital Signs Date Time Temp Pulse Resp B/P B/P Pulse O2 O2 Flow FiO2 Mean Ox Delivery Rate 06/24 0936 98.4 06/24 0620 99.9 77 18 132/70 97 Room Air 06/23 2225 99.0 73 20 120/60 98 06/23 2044 99.9 06/23 1902 101.6 06/23 1600 99.5 06/23 1456 100.0 06/23 1401 100.0 06/23 1356 100.0 92 20 150/90 100 Room Air Intake & Output 06/24 1600 06/24 0800 06/24 0000 Intake Total 780 630 Output Total Balance 780 630 Intake, IV 300 150 Intake, Oral 480 480 Physical Exam Other Physical Findings: MAXIMUM TEMPERATURE 101.6. He is awake and alert in no acute distress. Skin reveals no rash. HEENT negative. Neck is supple with no adenopathy. Lungs are clear. Heart regular rhythm with no murmur. Abdomen is soft, nontender with positive bowel sounds. Back no CVA tenderness. Extremities left shoulder wound with sutures in place with a small amount of purulent drainage expressed; erythema and fullness extending towards the left chest wall, mildly tender to palpation, with no induration; good range of motion of the left shoulder. Neuro is without focality. Last 24 Hours of Lab Results: Laboratory Tests 06/24 620 Hematology CBC w Diff NO MAN DIFF REQ WBC (4.8 - 10.8 /CUMM) 9.2 RBC (4.70 - 6.10 /CUMM) 3.54 L Hgb (14.0 - 18.0 G/DL) 11.8 L Hct (42 - 52 %) 34.1 L MCV (80.0 - 94.0 FL) 96.2 H MCH (27.0 - 31.0 PG) 33.3 H MCHC (33.0 - 37.0 G/DL) 34.6 RDW (11.5 - 14.5 %) 13.5 Plt Count (130 - 400 /CUMM) 203 MPV (7.4 - 10.4 FL) 8.7 Gran % (42.2 - 75.2 %) 78.9 H Lymphocytes % (20.5 - 51.1 %) 11.1 L Monocytes % (1.7 - 9.3 %) 7.5 Eosinophils % (0 - 5 %) 2.0 Basophils % (0.0 - 2.0 %) 0.5 Absolute Granulocytes (1.4 - 6.5 /CUMM) 7.3 H Absolute Lymphocytes (1.2 - 3.4 /CUMM) 1.0 L Absolute Monocytes (0.10 - 0.60 /CUMM) 0.7 H Absolute Eosinophils (0.0 - 0.7 /CUMM) 0.2 Absolute Basophils (0.0 - 0.2 /CUMM) 0 Last 24 Hours of Adalberto Results: Blood cultures 2 June 22 negative Left shoulder culture June 22 positive for Staph aureus sensitive to Oxacillin Diagnostic Data Recent Imaging Findings: Ultrasound of the left shoulder June 22 reveals diffuse subcutaneous soft tissue swelling with no evidence of a discrete drainable fluid collection Assessment/Plan Assessment/Plan Impression: This is a 61-year-old man, maintained on Gleevec for GI stromal tumors, status 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 He appears to have a cellulitis of the left shoulder/chest wall secondary to the recent dermatologic procedure. He was again febrile last night, but this was only 24 hours after initiation of antibiotics and, with his white blood cell count decreasing, suspect he is responding to antibiotics. The ultrasound did not suggest any collection and repeat imaging, for example with CT scan, could be considered, particularly as there is a small amount of purulent drainage expressible, but doubt that he has a drainable collection. Suggestion: 1. Warm compresses to the left shoulder and chest wall 2. Consider CT of the shoulder and left chest wall with IV contrast if he does not improve in the next 24 hours 3. Continue Cefazolin but would decrease to 1 g IV every 8 hours Consult Acknowledgment - Thank you for your consult request.
[2017-06-24 14:09] VITALS: BP 140/70
--- NOTE | 2017-06-24 18:43 | CT SCAN REPORT ---
EXAMINATION: CT CHEST WITH CONTRAST CT UPPER EXTREMITY, LEFT WITH CONTRAST CLINICAL INFORMATION: Cellulitis with pus. COMPARISON: Chest CT from 10/29/2016 TECHNIQUE: Multidetector volumetric imaging of the chest including the left shoulder region within the [id number] was performed after administration of 95 mL of Optiray 320 IV contrast. Coronal and sagittal reformatted images are obtained and reviewed. DLP: 425 mGy-cm FINDINGS: The central airways are patent. Minimal bibasilar atelectasis seen in both lower lobes. No dense consolidation. No pleural effusion or pneumothorax. Multiple subtle nodules are again noted. Pleural-based 0.3 cm right upper lobe nodule posteriorly seen on series 4 image 182 is unchanged. On the prior study, there was a more inferior adjacent nodule along the major fissure which is no longer seen. The 0.1 cm subpleural anterior right upper lobe nodule seen on series 4 image 269 is unchanged. Scattered calcified nodules in both lungs are unchanged. No new suspicious nodules are seen. The heart is normal in size. No pericardial effusion. No mediastinal lymphadenopathy. The visualized portion of the thyroid gland is unremarkable. No axillary lymphadenopathy. There is skin thickening and subcutaneous stranding in the left anterior chest wall overlying the pectoralis muscle. This is cranial to the nipple line. There is no associated fluid collection. No suspicious finding with the musculature on this study. No acute or suspicious osseous abnormality. The left glenohumeral joint is appropriately aligned. Mild degenerative changes with joint space narrowing and small osteophytes. Hypertrophic degenerative changes also noted at the acromioclavicular joint. Multilevel degenerative changes throughout the spine. DISH. IMPRESSION: 1. Inflammatory changes of the skin and immediate subcutaneous tissues involving the left anterior chest wall, consistent with the history of cellulitis. No evidence for abscess formation or underlying abnormality of the musculature. 2. There are no new suspicious pulmonary nodules. Multiple stable calcified and noncalcified nodules. 3. Degenerative changes of the left glenohumeral and acromioclavicular joints.
[2017-06-24 22:18] VITALS: BP 140/70
[2017-06-25 06:00] VITALS: BP 124/68
--- NOTE | 2017-06-25 07:32 | PN- Housestaff ---
Jolynn SIDDIQUI,Jose Francisco 06/25/17 0732: Subjective Follow-up For: LEFT SHOULDER CELLULITIS Complaints: no complaints Subjective: I followed up and examined the patient today. He is resting comfortably in bed, although he complains of left shoulder pain over the wound. He can move his arm and shoulder freely without any restrictions. The redness over the shoulder has decreased slightly, but his erythema over the front of his chest wall persists. Requiring less pain meds now. Afebrile. Review of Systems Constitutional: Reports: see HPI. Objective Last 24 Hrs of Vital Signs/I&O Vital Signs Date Time Temp Pulse Resp B/P B/P Pulse O2 O2 Flow FiO2 Mean Ox Delivery Rate 06/25 1420 99.0 79 20 158/80 97 Room Air 06/25 0600 98.9 63 18 124/68 97 Room Air 06/25 0016 97.7 06/24 2218 99.1 66 18 140/70 96 Room Air 06/24 2030 98.6 Intake & Output 06/25 1600 06/25 0800 06/25 0000 Intake Total 480 120 120 Output Total Balance 480 120 120 Intake, Oral 480 120 120 Number 2 Bowel Movements Physical Exam General Appearance: Alert, Oriented X3, Cooperative, No Acute Distress, overweight Other Physical Findings: Skin Left shoulder s/p skin biopsy with sutures, erythematous base with indurated area, less today, less pus expressed (examined by Dr Guidry prior to me), anterior chest wall still erythematous but not spread, no fluctuance noted. Skin Temp/Moisture Exam: Warm/Dry HEENT Atraumatic, PERRLA Neck Supple, No JVD Cardiovascular Regular Rate Lungs Clear to Auscultation, Normal Air Movement Abdomen Normal Bowel Sounds, Soft, No Tenderness Neurological grossly intact Extremities No Edema, Normal Pulses, No Tenderness/Swelling. Left shoulder as above. Current Medications: Current Medications Sig/Major Start time Last Medication Dose Route Stop Time Status Admin Acetaminophen 650 MG Q4P PRN 06/23 1400 AC 06/23 PO 1401 Acetaminophen 1,000 MG Q6P PRN 06/22 2200 AC 06/24 N/A 1 UNIT IV 1519 Aspirin Buffered 81 MG DAILY 06/23 0900 AC 06/25 PO 0841 Cefazolin Sodium 1,000 MG IQ8 06/25 0000 AC 06/25 IV 1613 Enoxaparin Sodium 40 MG DAILY 06/23 0900 AC 06/24 SC 0824 Ketorolac 30 MG .STK-MED ONE 06/24 2057 DC Tromethamine IM 06/24 2058 Ketorolac 30 MG Q8P PRN 06/22 2199 AC 06/24 Tromethamine IV 2100 Pravastatin Sodium 40 MG QPM 06/23 2100 AC 06/24 PO 210 Tramadol HCl 50 MG Q6 PRN 06/22 2199 AC 06/23 PO 1339 Last 24 Hrs of Lab/Adalberto Results Last 24 Hrs of Labs/Mics: Laboratory Tests 06/25/17 0610: CBC w Diff NO MAN DIFF REQ, RBC 3.58 L, MCV 97.1 H, MCH 33.1 H, MCHC 34.0, RDW 13.5, MPV 8.5, Gran % 70.2, Lymphocytes % 17.1 L, Monocytes % 8.3, Eosinophils % 3.6, Basophils % 0.8, Absolute Granulocytes 5.0, Absolute Lymphocytes 1.2, Absolute Monocytes 0.6, Absolute Eosinophils 0.3, Absolute Basophils 0.1 Assessment/Plan Assessment: Assessment: -Sepsis secondary to cellulitis of the left shoulder -Surgical site infection with MSSA -h/o Hypertension -h/o Hyperlipidemia -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 * Will be discharged tomorrow on oral abx per ID- Keflex 500 mg q6h for 7-10 days total. * Wound cultures were sent from Dr. Johnson office to [facility] * Of note, patient is allergic to penicillin. Received IV vancomycin and IV ceftazidime in the ED. Will continue IV cefazolin now and change antibiotics according to the cultures. * ID consult appreciated to guide the abx therapy. * Dr. Johnson has requested sutures not be removed without his knowledge * Pain control with IV Toradol, PO tramadol, and IV Tylenol * Continue Gleevac for GIST tumor (pt will use his own med if not available at the pharmacy) * DVT prophylaxis subcutaneous Lovenox * Full code Problem List: 1. Surgical wound infection Pain Ratin Pain Location: left shoulder Pain Goal: Pain 4 or less Pain Plan: prn Tomorrow's Labs & Rationales: Florin More MD 05/03/18 2155: Attending MD Review Statement Attending Statement Attending MD Statement: examined this patient, discuss w/resident/PA/PORTRAIT PHOTOGRAPHER, agreed w/resident/PA/PORTRAIT PHOTOGRAPHER, reviewed EMR data (avail), discussed with nursing, discussed with case mgmt, reviewed images, amended to note Attending Assessment/Plan: The patient was seen and discussed with house staff, nursing, and case management. Significant improvement in cellulitis. CT negative for abscess. Still expressed some pus. Will continue IV Ancef for additional 24 hours. Most likely discharge tomorrow on po Keflex as per ID. Discussed with Dr. Vallejo.
[2017-06-25 08:08] LABS: ABSOLUTE BASOPHIL COUNT 0.1 /CUMM (0.0-0.2); ABSOLUTE EOSINOPHIL COUNT 0.3 /CUMM (0.0-0.7); ABSOLUTE LYMPH COUNT 1.2 /CUMM (1.2-3.4); ABSOLUTE MONOCYTE COUNT 0.6 /CUMM (0.10-0.60); BASOPHIL % 0.8 % (0.0-2.0); EOSINOPHIL % 3.6 % (0-5); GRANULOCYTE % 70.2 % (42.2-75.2); HEMATOCRIT 34.7 % (42-52); MEAN CORPUSCULAR HGB 33.1 PG (27.0-31.0); MEAN CORPUSCULAR VOLUME 97.1 FL (80.0-94.0); MEAN PLATELET VOLUME 8.5 FL (7.4-10.4); PLATELET COUNT 216 /CUMM (130-400); RBC DISTRIBUTION WIDTH 13.5 % (11.5-14.5); RED BLOOD CELL CT 3.58 /CUMM (4.70-6.10); WHITE BLOOD CELL COUNT 7.1 /CUMM (4.8-10.8)
--- NOTE | 2017-06-25 11:33 | PN- Infect Dx ---
Subjective Subjective: Afebrile. He feels improved with decreased pain in the left shoulder. Objective Last 24 Hrs of Vital Signs/I&O Vital Signs Date Time Temp Pulse Resp B/P B/P Pulse O2 O2 Flow FiO2 Mean Ox Delivery Rate 06/25 06 98.9 63 18 124/68 97 Room Air 06/25 0016 97.7 06/24 2218 99.1 66 18 140/70 96 Room Air 06/24 2030 98.6 06/24 1409 99.2 68 20 140/70 98 Intake & Output 06/25 1600 06/25 0800 06/25 0000 Intake Total 120 120 Output Total Balance 120 120 Intake, Oral 120 120 Physical Exam Other Physical Findings: He appears comfortable in no acute distress Chest decreased erythema and edema of the left chest wall Extremities decreased erythema over the left shoulder, with a small amount of serosanguineous drainage expressed, minimally tender to palpation Results Last 24 Hours of Lab Results: Laboratory Tests 06/25 06 Hematology CBC w Diff NO MAN DIFF REQ WBC (4.8 - 10.8 /CUMM) 7.1 RBC (4.70 - 6.10 /CUMM) 3.58 L Hgb (14.0 - 18.0 G/DL) 11.8 L Hct (42 - 52 %) 34.7 L MCV (80.0 - 94.0 FL) 97.1 H MCH (27.0 - 31.0 PG) 33.1 H MCHC (33.0 - 37.0 G/DL) 34.0 RDW (11.5 - 14.5 %) 13.5 Plt Count (130 - 400 /CUMM) 216 MPV (7.4 - 10.4 FL) 8.5 Gran % (42.2 - 75.2 %) 70.2 Lymphocytes % (20.5 - 51.1 %) 17.1 L Monocytes % (1.7 - 9.3 %) 8.3 Eosinophils % (0 - 5 %) 3.6 Basophils % (0.0 - 2.0 %) 0.8 Absolute Granulocytes (1.4 - 6.5 /CUMM) 5.0 Absolute Lymphocytes (1.2 - 3.4 /CUMM) 1.2 Absolute Monocytes (0.10 - 0.60 /CUMM) 0.6 Absolute Eosinophils (0.0 - 0.7 /CUMM) 0.3 Absolute Basophils (0.0 - 0.2 /CUMM) 0.1 Last 24 Hours of Adalberto Results: Blood cultures June 22 negative Recent Imaging Studies: CT of the chest and left upper extremity reveals inflammatory changes of the skin and immediate subcutaneous tissues involving the left anterior chest wall with no evidence for abscess or underlying abnormality of the musculature Assessment/Plan ID Impression: Improving, with temperatures remaining normal and white blood cell count further decreased, on Cefazolin Day 3 of treatment for cellulitis of the left shoulder and chest wall following a skin biopsy, with a superficial culture positive for MSSA. His inflammation has decreased, though there is still a small amount of expressible drainage from the wound. Suggestion: 1. Warm compresses to the left shoulder 2. Continue Cefazolin but, if continues to improve, can change to Keflex 500 mg p.o. every 6 hours to complete a 7 to 10 day course of treatment
--- NOTE | 2017-06-25 11:45 | Discharge Summary ---
Visit Information Visit Dates Admission Date: 06/22/17 Discharge Date: 06/26/17 Hospital Course Course Attending Physician: Florin Marti MD Primary Care Physician: Dedrick Fox MD Hospital Course: 61-year-old male with past medical history of hypertension, hyperlipidemia, GIST status post resection, who underwent a recestion of left shoulder skin lesion with suspicion of SCC by criminal justice department chair presented to the ED after worsening of his left shoulder surgical site infection despite out patient oral antibiotics. He was treated with IV cefazolin, and his cultures were positive for staph aureus. While waiting for the sensitivity pattern, he spiked a temperature again when he received vancomycin. The final culture reports were MSSA, and the patient improved with IV cefazolin alone, and was discharged with oral Keflex, and warm compress per ID recommendations. CT scan did not show any pockets of abscess that could be drainable. His sutures were not removed and no I&D was done in this stay. Of note, he has to follow up with his PCP/Dermatologists (Dr Molina, Dr Johnson)after his discharge. He should return if his symptoms are to worsen as instructed. Allergies: Coded Allergies: Penicillins (Severe, HIVES 06/22/17) alcohol (UNKNOWN 06/22/17) atorvastatin (From LIPITOR) (UNKNOWN 06/22/17) Myopathy, Only when taking with Gleevec Disposition Summary Disposition Principal Diagnosis: Surgical site infection, left shoulder Additional Diagnosis: Hypertension, hyperlipidemia, GIST status post resection on Gleevac Discharge Disposition: home or self care Discharge Instructions General Discharge Information Code Status: Full Code Patient's Diet: Heart healthy diet Patient's Activity: As tolerated Follow-Up Instructions/Appts: Please follow-up with your primary care physician, dermatologists (Dr Molina and Dr Johnson) after your discharge. Please keep the wound site clean. Please return to emergency if symptoms worsen, high-grade fever, pus/discharge from the wound site persist, or as needed. Medications at Discharge Discharge Medications: Continue taking these medications: Imatinib Mesylate (Gleevec) 400 MG TABLET Comments: Last Taken:06/25/17 Time:6 PM OXYCODONE HCL/ACETAMINOPHEN (Percocet 5-325 MG Tablet) 325 MG/5 MG TAB 1 Tablet ORAL EVERY 4-6 HOURS NEEDED as needed for PAIN Qty = 12 Pravastatin Sodium (Pravastatin Sodium) 40 MG TABLET 1 Tablet ORAL DAILY Comments: Last Taken:06/25/17 Time:8:30 PM Aspirin (Ecotrin*) 81 MG TABLET. 1 Tablet ORAL DAILY Comments: Last Taken:06/26/17 Time:7:51 AM Start taking the following new medications: Cephalexin (Keflex) 500 MG CAPSULE 1 Capsule ORAL EVERY SIX HOURS Qty = 14 No Refills Copies To: Dominique SIDDIQUI,Dedrick Walls; Alex SIDDIQUI,Kareem Molina MD,Henny Moore Attending MD Review Statement Documenting Attending: Florin Marti MD Other Findings: The patient was discussed with house staff. Agree with the plan of care upon discharge as noted. Will continue Keflex and follow-up as planned with Dermatology for suture removal.
[2017-06-25 14:20] VITALS: BP 158/80
[2017-06-25] MEDS ORDERED: KEFLEX500 M1 PO (17:53)
--- NOTE | 2017-06-25 18:00 | Patient Discharge Instructions ---
Discharge Instructions General Discharge Information You were seen/treated for: surgical site infection, failed outpatient oral antibiotic therapy Special Instructions: Please follow-up with your primary care physician, dermatologists (Dr Molina and Dr Johnson) after your discharge. Please keep the wound site clean. Please return to emergency if symptoms worsen, high-grade fever, pus/discharge from the wound site persist, or as needed. Diet Continue normal diet: Yes Recommended Diet: Heart Healthy Activity Full Activity/No Limits: Yes Acute Coronary Syndrome Inclusion Criteria At DC or during hospital stay patient has or had the following: ACS DIAGNOSIS No Discharge Core Measures Meds if any: Prescribed or Continued at Discharge Meds if any: NOT Prescribed or Continued at Discharge Congestive Heart Failure Inclusion Criteria At DC or during hospital stay patient has or had the following: CHF DIAGNOSIS No Discharge Core Measures Meds if any: Prescribed or Continued at Discharge Meds if any: NOT Prescribed or Continued at Discharge Cerebrovascular accident Inclusion Criteria At DC or during hospital stay patient has or had the following: CVA/TIA Diagnosis No Discharge Core Measures Meds if any: Prescribed or Continued at Discharge Meds if any: NOT Prescribed or Continued at Discharge Venous thromboembolism Inclusion Criteria VTE Diagnosis No VTE Type NONE VTE Confirmed by (Test) NONE Discharge Core Measures - Per Current guidelines, there needs to be overlap - treatment for the first 5 days of Warfarin therapy. - If discharged on Warfarin prior to 5 days of - overlap therapy, the patient will need to be - assessed for post discharge needs including - *Post discharge parental anticoagulation - *Warfarin and/or parental anticoagulation education - *Follow up date to check INR post discharge At least 5 days overlap therapy as Inpatient No Meds if any: Prescribed or Continued at Discharge Note: Overlap Therapy is Warfarin and Anticoagulant Meds if any: NOT Prescribed or Continued at Discharge
[2017-06-25 22:06] VITALS: BP 150/80
[2017-06-26 06:09] VITALS: BP 130/62
--- NOTE | 2017-06-26 07:53 | PN- Housestaff ---
Jolynn SIDDIQUI,Jose Francisco 06/26/17 0752: Subjective Follow-up For: LEFT SHOULDER CELLULITIS Complaints: no complaints Subjective: I followed up and examined the patient today. He is resting comfortably in bed, does not appear to be in distress, and does not offer any complaints. He subjectively examined the wound is better today. He wants to be discharged as soon as possible. Review of Systems Constitutional: Reports: no symptoms. Objective Last 24 Hrs of Vital Signs/I&O Vital Signs Date Time Temp Pulse Resp B/P B/P Pulse O2 O2 Flow FiO2 Mean Ox Delivery Rate 06/26 608 98.0 61 20 130/62 97 06/25 220 98.8 76 20 150/80 98 Intake & Output 06/26 1600 06/26 0800 06/26 0000 Intake Total 300 100 Output Total Balance 300 100 Intake, Oral 300 100 Physical Exam General Appearance: Alert, Oriented X3, Cooperative, No Acute Distress, overweight Other Physical Findings: Skin Left shoulder s/p skin biopsy with sutures, erythematous base with indurated area, erythema is much less today, minimal pus expressed, anterior chest wall still erythematous but is less than yesterday, no fluctuance noted. Skin Temp/Moisture Exam: Warm/Dry HEENT Atraumatic, PERRLA Neck Supple, No JVD Cardiovascular Regular Rate Lungs Clear to Auscultation, Normal Air Movement Abdomen Normal Bowel Sounds, Soft, No Tenderness Neurological grossly intact Extremities No Edema, Normal Pulses, No Tenderness/Swelling. Left shoulder as above. Current Medications: Current Medications Sig/Major Start time Last Medication Dose Route Stop Time Status Admin Acetaminophen 650 MG Q4P PRN 06/23 1400 DCD 06/23 PO 1401 Acetaminophen 1,000 MG Q6P PRN 06/22 2199 DCD 06/24 N/A 1 UNIT IV 1519 Aspirin Buffered 81 MG DAILY 06/23 09 DCD 06/26 PO 0751 Cefazolin Sodium 1,000 MG IQ8 06/25 0000 DCD 06/26 IV 0634 Enoxaparin Sodium 40 MG DAILY 06/23 0900 DCD 06/24 SC 0824 Ketorolac 30 MG Q8P PRN 06/22 2199 DCD 06/24 Tromethamine IV 210 Pravastatin Sodium 40 MG QPM 06/23 2100 DCD 06/25 PO 2022 Tramadol HCl 50 MG Q6 PRN 06/22 2199 DCD 06/23 PO 1339 Assessment/Plan Assessment: Assessment: -Sepsis secondary to cellulitis of the left shoulder -Surgical site infection with MSSA, on IV abx -h/o Hypertension -h/o Hyperlipidemia -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 Keflex 500 mg q6h for 7-10 days total. * Wound cultures were sent from Dr. Johnson office to [facility] * Of note, patient is allergic to penicillin. Received IV vancomycin and IV ceftazidime in the ED. Will continue IV cefazolin now and change antibiotics according to the cultures. * Appreciate ID consultation. * Dr. Johnson has requested sutures not be removed without his knowledge * Pain control with IV Toradol, PO tramadol, and IV Tylenol * Continue Gleevac for GIST tumor * DVT prophylaxis subcutaneous Lovenox * Full code Problem List: 1. Surgical wound infection Pain Ratin Pain Location: left shoulder Pain Goal: Pain 4 or less Pain Plan: prn Tomorrow's Labs & Rationales: - Florin Marti MD 06/26/17 2310: Attending Review Statement Attending Statement Attending MD Statement: discuss w/resident/PA/WELLNESS ASSISTANT, agreed w/resident/PA/WELLNESS ASSISTANT, reviewed EMR data (avail), discussed with nursing, discussed with case mgmt, amended to note Attending Assessment/Plan: The patient was discharged early this morning as per his request. No events noted at night. Follow-up next week on po Keflex .
== END 2017-06-26 09:00 | DRG 863 ==
LOC: ERH 15:53 → 2NA 21:07 → ERHI 21:07 → ENRESERV 21:22 → ENTRNSPT 22:04 → CMPTRNSPT 22:22 → 2NA 22:30 → ENPENDDIS 06-26 07:58 → 2NA 06-26 09:00
PROVIDERS: Physician Assistant Medical; Student in an Organized Health Care Education/Training Program
DX: T81.4XXA Infection following a procedure, initial encounter (principal); M00.012 Staphylococcal arthritis, left shoulder; L03.114 Cellulitis of left upper limb; B95.61 Methicillin susceptible Staphylococcus aureus infection as the cause of diseases classified elsewhere; Z88.0 Allergy status to penicillin; Z88.8 Allergy status to other drugs, medicaments and biological substances; Z79.82 Long term (current) use of aspirin; Z79.891 Long term (current) use of opiate analgesic; E78.5 Hyperlipidemia, unspecified; Z85.828 Personal history of other malignant neoplasm of skin; I10 Essential (primary) hypertension
CPT/HCPCS: 2NAP; 2NASP; 36592; 76881; 82436; 87040; 87070; 96374; 96375; J0131; J0690; J0713; J1650; J1885; J3370; J7040